=== PATIENT | male | born 1975 | race Caucasian/White ===

== ENCOUNTER → 2019-05-23 | Outpatient (CLI) | payer BC ==
[~2019-05-23] MED LIST: CIPR-249 PO; KETO10TAB PO; MIRA3350 PO; ONDA4TAB6; TAMS1CAP17; VENTAER
--- NOTE | 2019-05-23 11:15 | REP ---
Clinical: Left upper quadrant abdominal pain Technique: Upright view of the chest with supine and upright views of the abdomen and pelvis. Findings: Frontal upright view of the chest demonstrates no acute cardiopulmonary process or free air below the diaphragm to suspect pneumoperitoneum. Supine and upright views of the abdomen and pelvis demonstrate nonspecific bowel gas pattern without obstruction or perforation. Moderate fecal stasis and constipation cannot be excluded. No organomegaly. No abnormal calcifications. Skeletal structures normal for age. Impression: Moderate fecal stasis and constipation. No bowel obstruction or perforation. Electronically Signed by Brett Fonseca MD 05/23/2019 11:07 A
--- NOTE | 2019-05-23 11:16 | REP ---
Clinical: Shortness of breath. Technique: PA and lateral. Comparison: 09/12/2013. Findings: Mediastinum and cardiac silhouette are normal. Stable calcified granuloma in the left mid lung zone again noted. No acute consolidation, effusion, or pneumothorax. Skeletal structures are intact. Impression: No acute cardiopulmonary process. Electronically Signed by Brett Fonseca MD 05/23/2019 11:08 A
[2019-05-23 12:44] LABS: BASO % 0.1 % (0.0-1.0); EOS % 0.3 % (0.0-3.0); HEMATOCRIT 47.6 % (42.0-52.0); HEMOGLOBIN 16.2 g/dl (13.5-17.5); LYMPH # 0.9 10^3/uL (1.5-5.0); LYMPH % 12.6 % (24.0-44.0); MEAN CORPUSCULAR HEMOGLOBIN 29.5 pg (27.0-33.0); MEAN CORPUSCULAR VOLUME 86.5 fl (80.0-96.0); MONO # 0.4 10^3/uL (0.0-0.8); MONO % 5.7 % (0.0-5.0); NEUTROPHILS # 5.6 10^3/uL (1.5-8.5); PLATELET COUNT, AUTOMATED 270 10^3/uL (150-450); WHITE BLOOD COUNT 6.9 10^3/uL (4.0-10.0)
[2019-05-23 13:13] LABS: ALBUMIN 4.1 GM/DL (3.2-5.2); ALT/SGPT 28 U/L (12-78); AMYLASE 37 U/L (25-115); BILIRUBIN,TOTAL 1.1 MG/DL (0.2-1.0); BLOOD UREA NITROGEN 14 MG/DL (7-18); C REACTIVE PROTEIN QUANTITATIV < 0.30 MG/DL (0.00-0.30); CALCIUM LEVEL 9.7 MG/DL (8.5-10.1); CARBON DIOXIDE LEVEL 28 MEQ/L (21-32); CHLORIDE LEVEL 105 MEQ/L (98-107); CREATININE FOR GFR 1.22 MG/DL (0.70-1.30); FREE T4 0.97 NG/DL (0.76-1.46); GLOMERULAR FILTRATION RATE > 60.0 (>60); GLUCOSE, FASTING 107 MG/DL (70-100); LIPASE 87 U/L (73-393); POTASSIUM SERUM 4.5 MEQ/L (3.5-5.1); SODIUM LEVEL 141 MEQ/L (136-145); TOTAL PROTEIN 7.6 GM/DL (6.4-8.2)
== END ==
LOC: M WUC 10:14
PROVIDERS: ATTEND Physician Assistant
DX: K56.41 Fecal impaction (principal); R10.812 Left upper quadrant abdominal tenderness; R06.02 Shortness of breath; Z72.0 Tobacco use; R31.9 Hematuria, unspecified; M54.2 Cervicalgia

== ENCOUNTER → 2019-05-23 | Outpatient (REF) | payer BC | LOC: M LAB REF 12:31 | PROVIDERS: ATTEND Physician Assistant | DX: R31.9 Hematuria, unspecified (principal) ==

== ENCOUNTER 2019-05-26 14:00 | Emergency (ER) | payer BC ==
[~2019-05-26] VITALS: Ht 188 cm; Wt 80.0 kg
[2019-05-26 14:00] VITALS: BP 146/74
[2019-05-26] MEDS ORDERED: VENTAER (14:09)
[2019-05-26] MEDS ORDERED: TAMS1CAP17 (14:09)
[2019-05-26] MEDS ORDERED: ONDA4TAB6 (14:09)
[2019-05-26 15:29] LABS: BASO % 0.4 % (0.0-1.0); EOS # 0.1 10^3/uL (0.0-0.5); EOS % 2.3 % (0.0-3.0); HEMATOCRIT 43.1 % (42.0-52.0); HEMOGLOBIN 14.5 g/dl (13.5-17.5); LYMPH # 1.1 10^3/uL (1.5-5.0); LYMPH % 19.9 % (24.0-44.0); MEAN CORPUSCULAR HEMOGLOBIN 29.2 pg (27.0-33.0); MEAN CORPUSCULAR HGB CONC 33.6 g/dl (32.0-36.5); MEAN CORPUSCULAR VOLUME 86.7 fl (80.0-96.0); MONO # 0.4 10^3/uL (0.0-0.8); MONO % 6.8 % (0.0-5.0); NEUTROPHILS # 3.7 10^3/uL (1.5-8.5); NEUTROPHILS % 70.4 % (36.0-66.0); PLATELET COUNT, AUTOMATED 221 10^3/uL (150-450); RED BLOOD COUNT 4.97 10^6/uL (4.30-6.10); WHITE BLOOD COUNT 5.3 10^3/uL (4.0-10.0)
--- NOTE | 2019-05-26 15:40 | REP ---
Clinical: Left flank pain. Technique: Axial noncontrast images from the lung bases to the pubic symphysis with coronal and sagittal re-formations. Findings: Mild acute left-sided obstructive uropathy with hydronephrosis and hydroureter is appreciated with a 3 mm calculus which appears to have recently passed into the bladder and should be correlated with physical examination. Right kidney/ureter appear normal. Liver, spleen, pancreas, gallbladder, bilateral adrenal glands are normal for noncontrast evaluation. The enteric system is without obstruction or acute inflammatory process. Colonic diverticulosis noted without acute diverticulitis. Pelvis demonstrates bladder as described above and age appropriate prostate/seminal vesicles. Small fat containing inguinal hernias. No ascites. No free air. No adenopathy. Abdominal aorta without aneurysm. Musculoskeletal structures are intact. Lung bases are clear. Impression: 1. Mild left-sided hydroureteronephrosis. A 3 mm calculus is identified and appears to be within the bladder likely representing a recently passed obstructing stone. Correlation with physical examination is recommended. 2. Diverticulosis without acute diverticulitis. Electronically Signed by Brett Fonseca MD 05/26/2019 03:31 P
[2019-05-26 15:58] LABS: ALBUMIN 3.5 GM/DL (3.2-5.2); ALT/SGPT 22 U/L (12-78); BILIRUBIN,DIRECT 0.2 MG/DL (0.0-0.2); BILIRUBIN,TOTAL 0.6 MG/DL (0.2-1.0); BLOOD UREA NITROGEN 11 MG/DL (7-18); CALCIUM LEVEL 8.7 MG/DL (8.5-10.1); CARBON DIOXIDE LEVEL 30 MEQ/L (21-32); CHLORIDE LEVEL 108 MEQ/L (98-107); CREATININE FOR GFR 0.98 MG/DL (0.70-1.30); GLOMERULAR FILTRATION RATE > 60.0 (>60); GLUCOSE, FASTING 93 MG/DL (70-100); POTASSIUM SERUM 3.8 MEQ/L (3.5-5.1); SODIUM LEVEL 141 MEQ/L (136-145); TOTAL PROTEIN 6.8 GM/DL (6.4-8.2)
[2019-05-26] MEDS ORDERED: KETOROLAC TROMETHAMINE 10 MG TAB PO ONE (16:30)
[2019-05-26] MEDS ORDERED: CIPROFLOXACIN 500 MG TAB PO ONE (16:30)
[2019-05-26] MEDS ORDERED: KETO10TAB PO (16:31)
[2019-05-26] MEDS ORDERED: MIRA3350 PO (16:31)
[2019-05-26] MEDS ORDERED: CIPR-249 PO (16:31)
== END 2019-05-26 16:42 | disposition home or self-care (01) ==
LOC: M ED 14:00
DX: N39.0 Urinary tract infection, site not specified (principal); K59.00 Constipation, unspecified; N23 Unspecified renal colic; N21.0 Calculus in bladder

== ENCOUNTER → 2019-05-30 | Outpatient (REF) | payer BC | LOC: M SMT 17:33 | PROVIDERS: ATTEND Nurse Practitioner Family | DX: N20.0 Calculus of kidney (principal) ==

== ENCOUNTER → 2020-08-25 | Outpatient (REF) | LOC: M EMP 11:12 | PROVIDERS: ATTEND Family Medicine | DX: Z20.822 Contact with and (suspected) exposure to COVID-19 (principal) ==